=== PATIENT | male | born 1960 | race Caucasian/White ===

== ENCOUNTER 2017-10-29 07:32 | Day surgery (SDC) | payer OTHER, BC ==
[~2017-10-29] VITALS: Ht 172.7 cm; Wt 103.2 kg
[~2017-10-29 07:32] MED LIST: ASPI325 PO; Advil200 M1 PO; CYCL10 PO; GABA100 PO; HYDACE5 PO; Keflex500 MG PO; NAPR500 PO; OMEP20ER; OMEPRAZOLE MAGN20 MG PO; OXYACE5T PO; Percocet 5-3251 EACH PO
== END 2017-10-29 09:46 | disposition home or self-care (01) ==
LOC: ORSCSDS 07:32
PROVIDERS: Internal Medicine Gastroenterology
PROC: 0DBK8ZX Excision of Ascending Colon, Via Natural or Artificial Opening Endoscopic, Diagnostic (ICD-10-PCS; principal; 2017-10-29 09:00)
PROC: 0DBM8ZX Excision of Descending Colon, Via Natural or Artificial Opening Endoscopic, Diagnostic (ICD-10-PCS; principal; 2017-10-29 09:00)
PROC: 0DBN8ZX Excision of Sigmoid Colon, Via Natural or Artificial Opening Endoscopic, Diagnostic (ICD-10-PCS; principal; 2017-10-29 09:00)
DX: Z12.11 Encounter for screening for malignant neoplasm of colon (principal); Z86.010 Personal history of colon polyps; Z80.0 Family history of malignant neoplasm of digestive organs; D12.2 Benign neoplasm of ascending colon; D12.4 Benign neoplasm of descending colon; K63.5 Polyp of colon; K57.30 Diverticulosis of large intestine without perforation or abscess without bleeding; F17.210 Nicotine dependence, cigarettes, uncomplicated
CPT/HCPCS: 88305; J0330; J1980; J2405; J7120

== ENCOUNTER 2021-06-16 12:17 | Day surgery (SDC) | payer OTHER ==
[~2021-06-16] VITALS: Ht 172.7 cm; Wt 87.0 kg
== END 2021-06-16 14:55 | disposition home or self-care (01) ==
LOC: ORSCSDS 12:17
PROVIDERS: Podiatrist
PROC: 0SQQ0ZZ Repair Left Toe Phalangeal Joint, Open Approach (ICD-10-PCS; principal; 2021-06-16 13:30)
DX: M20.42 Other hammer toe(s) (acquired), left foot (principal); M79.676 Pain in unspecified toe(s); I10 Essential (primary) hypertension; K21.9 Gastro-esophageal reflux disease without esophagitis; F17.210 Nicotine dependence, cigarettes, uncomplicated; Z79.899 Other long term (current) drug therapy
CPT/HCPCS: J0690; J2250; J2704; J3010; J7120

== ENCOUNTER 2021-12-26 08:51 | Day surgery (SDC) | payer OTHER ==
[~2021-12-26] VITALS: Ht 172.7 cm; Wt 80.8 kg
--- NOTE | 2021-12-26 09:55 | NUR ---
12/26/21 0955 Audrey Ballesteros TOW ATTEMPTS AT IV. FIRST ATTEMPT BY MA IN R HAND UNABLE TO ADVANCE. SECOND ATTEMPT BY MA IN R AC SUCESSFUL.
== END 2021-12-26 11:20 | disposition home or self-care (01) ==
LOC: ORSCSDS 08:51
PROVIDERS: Internal Medicine Gastroenterology
PROC: 0DBC8ZX Excision of Ileocecal Valve, Via Natural or Artificial Opening Endoscopic, Diagnostic (ICD-10-PCS; principal; 2021-12-26 10:15)
PROC: 0DBK8ZX Excision of Ascending Colon, Via Natural or Artificial Opening Endoscopic, Diagnostic (ICD-10-PCS; principal; 2021-12-26 10:15)
PROC: 0DBH8ZX Excision of Cecum, Via Natural or Artificial Opening Endoscopic, Diagnostic (ICD-10-PCS; principal; 2021-12-26 10:15)
PROC: 0DBN8ZX Excision of Sigmoid Colon, Via Natural or Artificial Opening Endoscopic, Diagnostic (ICD-10-PCS; principal; 2021-12-26 10:15)
DX: Z12.11 Encounter for screening for malignant neoplasm of colon (principal); Z86.010 Personal history of colon polyps; Z80.0 Family history of malignant neoplasm of digestive organs; D12.0 Benign neoplasm of cecum; D12.2 Benign neoplasm of ascending colon; K63.5 Polyp of colon; K57.30 Diverticulosis of large intestine without perforation or abscess without bleeding; F17.210 Nicotine dependence, cigarettes, uncomplicated
CPT/HCPCS: 88305; J2704; J7120